=== PATIENT | female | born 2005 | race Two or more races ===

== ENCOUNTER 2023-08-19 09:04 | Inpatient (IN) | payer MEDICAID ==
[~2023-08-19] VITALS: Ht 170.2 cm; Wt 118.2 kg
[2023-08-19] MEDS: SODIUM CHLORIDE 0.9% 1,000 ML IV ONE (09:52)
[2023-08-19 10:17] LABS: Basophils # (auto) 0 10 ^3/uL (0-0.2); Basophils % (auto) 0.2 % (0.0-2.0); Eosinophils # (auto) 0.1 10 ^3/uL (0-0.8); Eosinophils % (auto) 1.4 % (0.0-7.0); Hemoglobin 14.7 g/dL (12.2-16.2); Lymphocytes % (auto) 19.3 % (10.0-50.0); Mean Corpuscular Hgb Conc. 32.7 g/dL (32.0-36.0); Mean Corpuscular Volume 85.6 fL (80.0-100.0); Monocytes # (auto) 0.7 10 ^3/uL (0-1.3); Monocytes % (auto) 7.2 % (0.0-12.0); Neutrophils # (auto) 7.5 10 ^3/uL (1.6-8.6); Neutrophils % (auto) 71.9 % (37.0-80.0); Nucleated Red Blood Cells % 0.1 %; Red Blood Cells 5.26 10^6/uL (4.0-5.20); Red Cell Distribution Width 13.6 % (11.8-14.3); White Blood Cell 10.5 10^3/uL (4.4-10.8)
[2023-08-19 10:24] VITALS: PULSE 78; O2SAT 98
[2023-08-19 10:35] LABS: Alanine Aminotransferase 427 U/L (7-40); Albumin 4.3 g/dL (3.2-4.8); Alkaline Phosphatase 128 U/L (46-116); Anion Gap 14 (5-15); Aspartate Aminotransferase 246 U/L (13-40); BUN/Creatinine Ratio 13.9 (10.0-20.0); Bilirubin, Total 5.4 mg/dL (0.2-1.0); Blood Urea Nitrogen 11 mg/dL (9-23); Calcium 9.4 mg/dL (8.5-10.1); Carbon Dioxide 20 mmol/L (20-30); Chloride 109 mmol/L (98-107); Glucose 156 mg/dL (74-106); Potassium 2.9 mmol/L (3.5-5.1); Sodium 143 mmol/L (136-145); Total Protein 6.9 g/dL (5.7-8.2)
[2023-08-19] MEDS: MORPHINE SULFATE 4 MG/ML SYR/VIAL IV ONE (10:36)
[2023-08-19] MEDS: ONDANSETRON HCL 4 MG/2 ML VIAL IV ONE (10:37)
[2023-08-19 11:37] LABS: Urine Amorphous Crystal FEW /hpf (None Seen); Urine Bacteria FEW /hpf (None Seen); Urine Blood 2+ /uL (Negative); Urine Clarity Turbid (Clear); Urine Color Dark-Yellow (Yellow); Urine Mucus FEW (None Seen); Urine Protein, UAD 1+ (Negative); Urine Specific Gravity 1.034 (1.001-1.035); Urine Urobilinogen 4 mg/dL (Negative); Urine WBC 5 /hpf (0 - 5)
[2023-08-19] MEDS: cefTRIAXone 1GM/50ML D5W 50 ML IV ONE (13:06)
[2023-08-19] MEDS: HYDROmorphone HCL 2 MG/ML VL/or syr IM ONE (13:13)
[2023-08-19 13:31] LABS: Lactic Acid w/Reflex 3.4 mmol/L (0.4-2.0)
[2023-08-19] MEDS ORDERED: ONDANSETRON HCL 4 MG/2 ML VIAL IV PRN (13:45)
[2023-08-19] MEDS: metroNIDAZOLE 500MG/100ML 100 ML IV ONE (13:55)
[2023-08-19] MEDS: SODIUM CHLORIDE 0.9% 1,000 ML IV SCH (14:01)
[2023-08-19] MEDS: PANTOPRAZOLE 40 MG/10 ML VIAL INJ IV ONE (14:01)
[2023-08-19 14:04] LABS: INR 1.12 (0.9-1.15); Prothrombin Time 11.8 sec (9.3-11.8)
[2023-08-19] MEDS: HYDROmorphone HCL 2 MG/ML VL/or syr IV PRN (16:47)
[2023-08-19] MEDS: PIPERACILLIN-TAZOB 3.375GM 100 ML IV SCH (18:00)
[2023-08-19 19:25] VITALS: BP 144/75; PULSE 97; RESP 22; TEMP 98.5; O2SAT 98
[2023-08-19 20:00] VITALS: BP 144/75; PULSE 97; RESP 22; TEMP 98.5; O2SAT 98
[2023-08-19] MEDS ORDERED: IBU600T PO (20:57)
[2023-08-19 21:00] VITALS: BP 144/75; PULSE 97; RESP 22; TEMP 98.5; O2SAT 98
[2023-08-19 21:08] LABS: Magnesium 1.6 mg/dL (1.6-2.6)
[2023-08-19 21:09] LABS: Phosphorus 3.1 mg/dL (2.4-5.1)
[2023-08-19] MEDS: POTASSIUM CHL 20MEQ/100ML 100 ML IV SCH (22:01)
[2023-08-19] MEDS: SODIUM CHLORIDE 0.9% 2,000 ML IV ONE (22:17)
[2023-08-20] VITALS (9 sets, daily range): BP systolic 118–158; BP diastolic 67–84; PULSE 97–151; RESP 16–22; TEMP 97.2–98.7; O2SAT 90–99
[2023-08-20] MEDS: ONDANSETRON HCL 4 MG/2 ML VIAL IV PRN (00:37)
[2023-08-20] MEDS: SODIUM CHLORIDE 0.9% 1,000 ML IV SCH (02:55)
[2023-08-20 06:03] LABS: Basophils # (auto) 0 10 ^3/uL (0-0.2); Basophils % (auto) 0.1 % (0.0-2.0); Eosinophils # (auto) 0 10 ^3/uL (0-0.8); Hematocrit 49.8 % (36.0-46.0); Hemoglobin 16.4 g/dL (12.2-16.2); Lymphocytes % (auto) 5.4 % (10.0-50.0); Mean Corpuscular Hemoglobin 28.1 pg (28.0-32.0); Mean Corpuscular Volume 85.1 fL (80.0-100.0); Monocytes % (auto) 5.4 % (0.0-12.0); Neutrophils % (auto) 89.1 % (37.0-80.0); Nucleated Red Blood Cells % 0.1 %; Red Blood Cells 5.85 10^6/uL (4.0-5.20); Red Cell Distribution Width 14.2 % (11.8-14.3); White Blood Cell 17.9 10^3/uL (4.4-10.8)
[2023-08-20 06:07] LABS: Alanine Aminotransferase 301 U/L (7-40); Alkaline Phosphatase 119 U/L (46-116); Anion Gap 9 (5-15); Aspartate Aminotransferase 91 U/L (13-40); BUN/Creatinine Ratio 12.6 (10.0-20.0); Blood Urea Nitrogen 11 mg/dL (9-23); Calcium 8.3 mg/dL (8.5-10.1); Carbon Dioxide 22 mmol/L (20-30); Chloride 110 mmol/L (98-107); Glucose 146 mg/dL (74-106); Potassium 4.1 mmol/L (3.5-5.1); Sodium 141 mmol/L (136-145)
[2023-08-20 06:08] LABS: Bilirubin, Total 1.7 mg/dL (0.2-1.0); Total Protein 6.4 g/dL (5.7-8.2)
[2023-08-20] MEDS: dilTIAZem 25 MG/5 ML VIAL IV ONE (06:17)
[2023-08-20] MEDS: PANTOPRAZOLE 40 MG/10 ML VIAL INJ IV SCH (11:17)
[2023-08-20] MEDS: SODIUM CHLORIDE 0.9% 1,000 ML IV ONE ×2 (13:38→16:15)
[2023-08-20] MEDS: metroNIDAZOLE 500MG/100ML 100 ML IV SCH (21:40)
[2023-08-21] VITALS (8 sets, daily range): BP systolic 106–132; BP diastolic 52–79; PULSE 113–130; RESP 18–20; TEMP 97.3–99.2; O2SAT 90–98
[2023-08-21] MEDS ORDERED: PROMETHAZINE HCL 25 MG/ML 1ML IV PRN (11:45)
[2023-08-21] MEDS: PROCHLORPERAZINE EDISYLATE 5 MG/ML 2ML VIAL IV PRN (12:40)
[2023-08-21] MEDS: ACETAMINOPHEN 325 MG TAB PO PRN (12:41)
[2023-08-21 16:01] LABS: Basophils # (auto) 0 10 ^3/uL (0-0.2); Basophils % (auto) 0.1 % (0.0-2.0); Eosinophils # (auto) 0 10 ^3/uL (0-0.8); Eosinophils % (auto) 0.1 % (0.0-7.0); Hematocrit 44.6 % (36.0-46.0); Hemoglobin 14.4 g/dL (12.2-16.2); Lymphocytes # (auto) 1.2 10 ^3/uL (0.4-5.4); Lymphocytes % (auto) 7.1 % (10.0-50.0); Mean Corpuscular Hemoglobin 27.4 pg (28.0-32.0); Mean Corpuscular Hgb Conc. 32.2 g/dL (32.0-36.0); Monocytes % (auto) 5.9 % (0.0-12.0); Neutrophils # (auto) 15.2 10 ^3/uL (1.6-8.6); Neutrophils % (auto) 86.8 % (37.0-80.0); Nucleated Red Blood Cells % 0.1 %; Red Blood Cells 5.25 10^6/uL (4.0-5.20); Red Cell Distribution Width 14.1 % (11.8-14.3); White Blood Cell 17.4 10^3/uL (4.4-10.8)
[2023-08-21 16:21] LABS: Alanine Aminotransferase 132 U/L (7-40); Albumin 3.2 g/dL (3.2-4.8); Alkaline Phosphatase 67 U/L (46-116); Anion Gap 6 (5-15); Aspartate Aminotransferase 37 U/L (13-40); BUN/Creatinine Ratio 20.5 (10.0-20.0); Bilirubin, Total 1.5 mg/dL (0.2-1.0); Blood Urea Nitrogen 16 mg/dL (9-23); Calcium 7.7 mg/dL (8.7-10.4); Carbon Dioxide 22 mmol/L (20-30); Chloride 107 mmol/L (98-107); Glucose 125 mg/dL (74-106); Lipase 224 U/L (12-53); Potassium 3.6 mmol/L (3.5-5.1); Total Protein 5.5 g/dL (5.7-8.2)
[2023-08-21 16:23] LABS: Sodium 135 mmol/L (136-145)
[2023-08-22] VITALS (8 sets, daily range): BP systolic 115–156; BP diastolic 45–78; PULSE 99–130; RESP 16–20; TEMP 98.1–98.9; O2SAT 89–98
[2023-08-22 09:12] LABS: Hepatitis B Surface Antigen Negative (Negative)
[2023-08-22 09:33] LABS: Hepatitis A Ab IgM Negative; Hepatitis B Core IgM Negative
[2023-08-22 09:34] LABS: Hepatitis C Antibody Negative (Negative)
[2023-08-22] MEDS: HYDROcodone-ACET 5/325MG TAB PO PRN (15:38)
[2023-08-23 00:43] VITALS: BP 115/49; PULSE 123; RESP 18; TEMP 98.9; O2SAT 92
[2023-08-23 05:00] VITALS: BP 113/48; PULSE 123; RESP 17; TEMP 98.2; O2SAT 92
[2023-08-23] MEDS: DOCUSATE SOD 100 MG CAP PO PRN (06:19)
[2023-08-23 08:00] VITALS: PULSE 125
[2023-08-23 09:00] VITALS: BP 111/48; PULSE 125; RESP 18; TEMP 98.9; O2SAT 95
[2023-08-23 12:39] VITALS: BP 116/69; PULSE 119; RESP 17; TEMP 98.9; O2SAT 91
[2023-08-23 17:00] VITALS: BP 119/49; PULSE 123; RESP 16; TEMP 98.9; O2SAT 91
== END 2023-08-23 17:52 | disposition left against medical advice (07) ==
LOC: ER 09:04 → OVERFLOW 13:43 → WEST WING 18:50 → TELE-WESTW 08-22 06:25
PROVIDERS: ADMIT Nurse Practitioner Family; ATTEND Internal Medicine
DX: K80.63 Calculus of gallbladder and bile duct with acute cholecystitis with obstruction (principal); K85.90 Acute pancreatitis without necrosis or infection, unspecified; R74.01 Elevation of levels of liver transaminase levels; F17.290 Nicotine dependence, other tobacco product, uncomplicated; Z53.29 Procedure and treatment not carried out because of patient's decision for other reasons; D72.829 Elevated white blood cell count, unspecified; Z83.3 Family history of diabetes mellitus; Z82.49 Family history of ischemic heart disease and other diseases of the circulatory system; Z79.899 Other long term (current) drug therapy; K82.9 Disease of gallbladder, unspecified
CPT/HCPCS: 36415; 74181; 76705; 80053; 80074; 81001; 83605; 83690; 83735; 84100; 84478; 84702; 85025; 85610; 86850; 86900; 86901; 87040; C9113; G0378; J2405; J2543; J3480; J3490